=== PATIENT | female | born 1955 | race Caucasian/White ===

== ENCOUNTER 2018-11-25 06:05 | Inpatient (IN) | payer OTHER ==
[2018-11-19 12:39] VITALS: BMI 19.2
[2018-11-25] MEDS ORDERED: CEFAZOLIN 1 GM/D5W 1 GM/50 ML BAG IVPB ONE ×2 (06:28→15:00)
[2018-11-25] MEDS ORDERED: oxyCODONE HCL 10 MG SUSTAINED ACTING TABLET PO STA (06:28)
[2018-11-25] MEDS ORDERED: oxyCODONE HCL 10 MG SUSTAINED ACTING TABLET ONE (06:51)
--- NOTE | 2018-11-25 07:03 | HP ---
History & Physical Update - History History: No Change - Physical Physical: No Change - Assessment Assessment: No Change - Plan Plan: No Change (Initial H&P is complete and accurate. no new complaints or medications. Here today for elective L1/2 TLIF (LBP radiating to right hip).)
[2018-11-25] MEDS ORDERED: THROMBIN (BOVINE) 5,000 UNIT VIAL TP ONE ×2 (07:05→08:39)
[2018-11-25] MEDS ORDERED: BUPIVACAINE HCL/PF 2.5 MG/ML - 30 ML VIAL IJ ONE (07:12)
[2018-11-25] MEDS ORDERED: MIDAZOLAM HCL 2 MG/2 ML SINGLE DOSE VIAL ONE (07:12)
[2018-11-25] MEDS ORDERED: BUPIVACAINE LIPOSOME/PF (EXPAREL) 266 MG/20 ML VIAL ONE (07:12)
[2018-11-25] MEDS ORDERED: ceFAZolin SODIUM 1 GM VIAL ONE (08:12)
[2018-11-25] MEDS ORDERED: ONDANSETRON 4 MG/2 ML VIAL ONE ×2 (08:12→10:47)
[2018-11-25] MEDS ORDERED: DEXAMETHASONE SOD PHOSPHATE 4 MG/1 ML VIAL ONE (08:12)
[2018-11-25] MEDS ORDERED: SUCCINYLCHOLINE CHLORIDE 200 MG/10 ML VIAL ONE (08:35)
[2018-11-25] MEDS ORDERED: GELATIN SPONGE,ABSORBABLE 1 GM PACKET TP ONE (08:40)
--- NOTE | 2018-11-25 10:03 | OP ---
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
[2018-11-25] MEDS ORDERED: oxyCODONE HCL 5 MG TABLET PO PRN ×3 (10:04→10:07)
--- NOTE | 2018-11-25 10:04 | SURG ---
Surgery Finish Rolls Operator Note Finish Rolls Operator: Daniel Rausch PA-C Date of Service: 11/25/18 Diagnosis: L1/2 spondylolithesis, scoliosis, radiulopathy Procedure: Transforaminal lumbar interbody fusion L1/2, decompression / instrumentation / allograft implant / neuromonitoring I was present for the entirety of the operative procedure. For further detail, please refer to operative report. Visit type - Case Type Case Type: Scheduled - New patient This patient is new to me today: Yes Date on this admission: 11/25/18
[2018-11-25] MEDS ORDERED: LACTATED RINGERS SOLUTION 1,000 ML IV SCH ×2 (10:15)
[2018-11-25] MEDS: ONDANSETRON 4 MG/2 ML VIAL IVPUSH PRN ×2 (10:47→16:15)
[2018-11-25] MEDS: ACETAMINOPHEN 1000 MG/100 ML VIAL (NON FORMULARY) IVPB PRN ×2 (11:45→20:37)
--- NOTE | 2018-11-25 14:16 | OP ---
DATE OF OPERATION: 11/25/2018 PREOPERATIVE DIAGNOSIS: Spinal stenosis, L1-L2. POSTOPERATIVE DIAGNOSIS: Spinal stenosis, L1-L2. PROCEDURE PERFORMED: 1. Transforaminal lumbar interbody fusion, L1-L2. 2. Placement of instrumentation. 3. Placement of cage. SURGEON: Lui Barriga MD BIT WELDER: TUNDE Duran ESTIMATED BLOOD LOSS: 50 mL. IINTRAVENOUS FLUID: Per Anesthesia. ANESTHESIA: Spinal/TLIP. COMPLICATIONS: There were none. DISPOSITION: Patient brought to the PACU in stable condition. INDICATIONS: The patient is a 63-year-old female who has been suffering from pain from her back down her right leg. X-rays and MRI were completed, which noted that she had spinal stenosis at L1-L2 secondary to degenerative disc disease. She had gone through an exhaustive course of treatment which included medications, physical therapy, as well as injections. Unfortunately, her pain continued to persist despite all this. At this point, risks, benefits, and alternatives were discussed, and the patient consented to surgery. OPERATIVE NOTE: Patient was brought to the operating room by the anesthesia staff. After appropriate patient identification was performed, spinal anesthesia was given, TLIP block was also given. Patient was able to position herself prone onto the OR table with all areas of bony prominences well-padded at this time. The C-arm was brought in. The L1-L2 pedicles were marked off. Her back was prepped and draped in a sterile manner. At this point, a time-out was completed. Incisions were made bilaterally over the L1-L2 pedicles. Dissection was carried down to the fascia. Fascia was splint open at this time. Under C-arm guidance, trocars were then advanced into both the L1 and L2 pedicles, the trocar wires inserted, and over the wires, tap was performed. On the right-hand side, retractor blades were set up to expose the L1-L2 facet joint. A microscope was brought in. The facet joint was removed. The disc was entered. Using a series of pituitary, Kerrison rongeurs, and curettes, the discectomy was completed. The endplates were decorticated at this time. Bone graft was laid in. A cage filled with bone graft was placed in. Tulip heads were placed over the screws. A saleem was measured and placed in. Caps and compression were applied. On the left hand side, a saleem was measured and placed in. Cap and compression were applied. AP and lateral x-rays confirmed the instrumentation to be in good position. The fascia was closed with a No. 1 Vicryl suture. The subcutaneous tissues were closed with 3-0 Vicryl suture. Skin was closed with 3-0 Monocryl suture. Dermabond was applied. Steri-Strips were applied. Sterile dressings applied. Patient was placed supine on the OR bed and brought to the PACU in stable condition. Anupam BELL/[id number] MTDD
[2018-11-25] MEDS ORDERED: CEFAZOLIN 1 GM/D5W 1 GM/50 ML BAG ONE (15:07)
[2018-11-25] MEDS ORDERED: ceFAZolin SODIUM 1 GM VIAL IVPB ONE (15:15)
[2018-11-25] MEDS ORDERED: PANTOPRAZOLE SODIUM 40 MG VIAL IVPUSH ONE (17:16)
[2018-11-25] MEDS ORDERED: PANTOPRAZOLE SODIUM 40 MG VIAL IVPUSH SCH ×4 (17:45→22:00)
--- NOTE | 2018-11-25 18:15 | PN ---
Physical Exam: Spoke with Dr. Barriga who requests patient be taken onto the hospitalist service. SUBJECTIVE: Patient seen and examined in ASU at bedside. Underwent spinal fusion surgery earlier today, received oxycodone, fentanyl, and IV Tylenol. Complains of a sharp, burning-type pain in the epigastric area with nausea x 1.5 hours. Had a similar episode of epigastric pain on 11/14/18 after taking several doses of ultram for back pain. She was seen at that time in [facility] and diagnosis was gastritis secondary to ultram use. Patient denies any other history of ulcers, GERD, or GI issues. OBJECTIVE: Vital Signs Period Temp Pulse Resp BP Sys/Holm Pulse Ox Last 24 Hr 97.8 F-99.2 F 70-96 11-18 86-150/50-99 95-100 GENERAL: The patient is awake, alert, and fully oriented. Anxious. LUNGS: Breath sounds CTA. HEART: Regular rate and rhythm, S1, S2 ABDOMEN: Soft, nontender, nondistended, hypoactive bowel sounds EXTREMITIES: 2+ pulses, warm, well-perfused, trace bilateral edema NEUROLOGICAL: Cranial nerves II through XII grossly intact. Normal speech, gait not observed. Moving all extremities freely; self-positions easily BACK: Surgical dressing c/d/i, no surrounding erythema, swelling, or fluctuance ; no strikethrough SKIN: Warm, dry, normal turgor Active Medications Generic Name Dose Route Start Last Admin Trade Name Freq PRN Reason Stop Dose Admin Acetaminophen 650 mg 11/25/18 10:15 Tylenol - PO Q6H ANNE MARIE Acetaminophen 1,000 mg 11/25/18 10:04 11/25/18 11:45 Ofirmev Injection - IVPB 11/26/18 10:03 1,000 mg PRN PRN Administration If narcotics are ineffective Diazepam 2 mg 11/25/18 22:00 Valium - PO Q12H ANNE MARIE Lactated Ringer's 1,000 mls @ 125 mls/hr 11/25/18 10:15 Lactated Ringers Solution IV ASDIR ANNE MARIE Oxycodone HCl 5 mg 11/25/18 10:07 Roxicodone - PO Q4H PRN PAIN LEVEL 1-5 Oxycodone HCl 5 mg 11/25/18 10:04 Roxicodone - PO Q4H PRN PAIN LEVEL 1-5 Oxycodone HCl 10 mg 11/25/18 10:04 Roxicodone - PO Q4H PRN PAIN LEVEL 6-10 Pantoprazole Sodium 40 mg 11/25/18 22:00 Protonix Iv IVPUSH BID PENDING SALE TO [facility] ASSESSMENT/PLAN 63 year-old female s/p L1-L2 TLIF and allograft implant earlier today. Now with epigastric pain and nausea. Epigastric pain and nausea --vital signs are stable, surgical dressing is c/d/i, no signs of bleeding --discomfort is likely secondary to opioid medication as patient had similar episode 2 weeks ago; will start protonix IV BID --cbc, EKG, serial troponins --IV fluids --NPO for now; clears in am --continue IV tylenol and valium; monitor pain levels closely; if pain not well-managed contact hospitalist night team Visit type - Emergency Visit Emergency Visit: No - New Patient This patient is new to me today: Yes Date on this admission: 11/25/18 - Critical Care Critical Care patient: No
[2018-11-25] MEDS ORDERED: DEXTROSE 5%-0.45% SALINE 1,000 ML IV SCH (18:30)
[2018-11-25] MEDS ORDERED: diazePAM 5 MG TABLET PO STA (18:32)
[2018-11-25] MEDS ORDERED: diazePAM 5 MG TABLET ONE (18:46)
[2018-11-25 19:14] LABS: HEMOGLOBIN 10.7 GM/dl (10.7-15.3); MCHC 33.3 g/dl (32.0-36.0); MEAN CELL VOLUME 96.3 fl (80-96); MEAN PLT VOLUME 7.5 fl (7.5-11.1); PLATELET COUNT 200 K/MM3 (134-434); RBC 3.33 M/mm3 (3.60-5.2); RDW 11.7 % (11.6-15.6); WHITE BLOOD COUNT 11.1 K/mm3 (4.0-10.8)
[2018-11-25 19:25] LABS: ALBUMIN 3.7 g/dl (3.4-5.0); ALK PHOS 39 U/L (45-117); ANION GAP 7 MMOL/L (8-16); BILIRUBIN,TOTAL 0.5 mg/dl (0.2-1); BLOOD UREA NITROGEN 13 mg/dl (7-18); CHLORIDE 100 mmol/L (98-107); CO2 27 mmol/L (21-32); CREATININE 0.7 mg/dl (0.55-1.3); GLUCOSE,RANDOM 224 mg/dl (74-106); MAGNESIUM 1.5 mg/dL (1.8-2.4); POTASSIUM 3.9 mmol/L (3.5-5.1); SGOT/AST 27 U/L (15-37); SGPT/ALT 16 U/L (13-61); SODIUM 134 mmol/L (136-145); TOT PROT 6.1 g/dl (6.4-8.2)
[2018-11-25] MEDS ORDERED: MAGNESIUM SULF 50% (8.12 MEQ/2 ML-1 GM VIAL) IVPB ONE (21:22)
[2018-11-25] MEDS ORDERED: ONDANSETRON 4 MG/2 ML VIAL IVPUSH PRN (21:36)
[2018-11-25] MEDS ORDERED: PROMETHAZINE HCL 50 MG/1 ML AMP IM ONE (21:36)
[2018-11-25] MEDS ORDERED: PROMETHAZINE HCL 25 MG/1 ML VIAL ONE (21:49)
[2018-11-25] MEDS ORDERED: diazePAM 2 MG TABLET PO SCH (22:00)
[2018-11-25 22:33] LABS: ANISOCYTOSIS 1+; PLATELET ESTIMATE ADEQUATE
[2018-11-26] MEDS: ACETAMINOPHEN 325 MG TABLET (FP) PO SCH ×3 (00:03→09:30)
[2018-11-26] MEDS ORDERED: METOCLOPRAMIDE HCL INJECTION 10 MG/2 ML VIAL IVPUSH ONE (01:03)
[2018-11-26] MEDS: ACETAMINOPHEN 1000 MG/100 ML VIAL (NON FORMULARY) IVPB PRN (03:01)
[2018-11-26] MEDS ORDERED: HYDROmorphone HCl 2 MG/ML VIAL IVPB PRN (04:04)
[2018-11-26] MEDS ORDERED: KETOROLAC TROMETHAMINE 30 MG/1 ML VIAL IVPB SCH (04:15)
--- NOTE | 2018-11-26 07:22 | DS ---
Physical Exam: SUBJECTIVE: Patient seen and examined. Per RN notes and oral report this morning , patient had a difficult time managing her pain and abd pain associated with nausea. According to Dr. Barriga, patient had similar episode to Tramadol a week ago which landed her in the hospital --> diagnosed with Gastritis secondary to Tramadol sensitivity. Patient has taken Percocet in the past without any problems. Last night, patient c/o epigastric pain/burning/gnawing sensation (10/10) that was difficult to control associated with nausea. All narcotics were stopped. [facility] on-call PA called who ordered Ketorolac and Ofirmev. Per RN patient finally able to fall asleep and no more complaints. Currently, patient laying LLR without complaint. States her nausea subsided. Abd pain now 12/19. She got oob and ambulated to commode. Voiding spontaneously. Prior too surgery, patient c/o low back pain that radiated to her right hip. Now s/p surgery states pain in her right hip is completely gone. OBJECTIVE: Last Vital Signs Temp Pulse Resp BP Pulse Ox 98.8 F 101 H 19 131/77 98 11/26/18 06:00 11/26/18 06:00 11/26/18 06:00 11/26/18 06:00 11/26/18 06:00 PE GENERAL: awake, alert, and fully oriented, in no acute distress. HEAD: Normal with no signs of trauma. EYES: PERRL, extraocular movements intact, sclera anicteric, conjunctiva clear. ENT: Ears normal, nares patent, oropharynx clear without exudates, moist mucous membranes. NECK: Trachea midline, full range of motion, supple. LUNGS: CTA bilat HEART: RRR ABDOMEN: Soft, nontender, nondistended, normoactive bowel sounds, no guarding, no rebound, no hepatosplenomegaly, no masses. LE: 2+ pulses, warm, well-perfused, no edema. NEUROLOGICAL: CN II - XII grossly intact. Normal speech, gait not observed. PSYCH: Normal mood, normal affect. SKIN: Lumbar dressing c/d/i. No palpable hematoma. No drainage. No surrounding erythema LABS CBC,CMP WBC 11.1 K/mm3 (4.0-10.8) H 11/25/18 19:00 RBC 3.33 M/mm3 (3.60-5.2) L 11/25/18 19:00 Hgb 10.7 GM/dl (10.7-15.3) 11/25/18 19:00 Hct 32.0 % (32.4-45.2) L 11/25/18 19:00 MCV 96.3 fl (80-96) H 11/25/18 19:00 MCH 32.0 pg (25.7-33.7) 11/25/18: MCHC 33.3 g/dl (32.0-36.0) 11/25/18 19: RDW 11.7 % (11.6-15.6) 11/25/18: Plt Count 200 K/MM3 (134-434) 11/25/18: MPV 7.5 fl (7.5-11.1) 11/25/18 19:00 Absolute Neuts (auto) 10.1 K/mm3 11/25/18 19:00 Neutrophils % No Result Required. 11/25/18 19: Neutrophils % (Manual) 86.0 % (42.8-82.8) H 11/25/18 19:00 Band Neutrophils % 2.0 % (0-10) 11/25/18:00 Lymphocytes % No Result Required. 11/25/18 19:00 Lymphocytes % (Manual) 10.0 % (8-40) 11/25/18 19:00 Monocytes % (Manual) 2 % (3.8-10.2) L 11/25/18 19: Platelet Estimate Adequate 11/25/18 19:00 Anisocytosis 1+ 11/25/18: Spherocytes 1+ 11/25/18 19: Sodium 134 mmol/L (136-145) L 11/25/18 19:00 Potassium 3.9 mmol/L (3.5-5.1) 11/25/18:00 Chloride 100 mmol/L (98-107) 11/25/18 19:00 Carbon Dioxide 27 mmol/L (21-32) 11/25/18 19:00 Anion Gap 7 MMOL/L (8-16) L 11/25/18 19:00 BUN 13 mg/dl (7-18) 11/25/18 19:00 Creatinine 0.7 mg/dl (0.55-1.3) 11/25/18 19:00 Creat Clearance w eGFR > 60 (>60) 11/25/18 19:00 Random Glucose 224 mg/dl (74-106) H 11/25/18 19:00 Calcium 9.0 mg/dl (8.5-10) 11/25/18 19:00 Magnesium 1.5 mg/dL (1.8-2.4) L 11/25/18 19:00 Total Bilirubin 0.5 mg/dl (0.2-1) 11/25/18 19:00 AST 27 U/L (15-37) 11/25/18 19:00 ALT 16 U/L (13-61) 11/25/18 19:00 Alkaline Phosphatase 39 U/L (45-117) L 11/25/18 19:00 Troponin I < 0.02 ng/ml (0.00-0.05) 11/26/18 01:04 Total Protein 6.1 g/dl (6.4-8.2) L 11/25/18 19:00 Albumin 3.7 g/dl (3.4-5.0) 11/25/18 19:00 HOSPITAL COURSE: Date of Admission:11/25/18 Date of Discharge: 11/26/18 The patient was admitted to the Med-Surg Unit after an elective repair of their L1/2 spondylolithesis. Now, s/p L1/2 TLIF / allograft implant / neuromonitoring. Post-operative management was a bit challenging with this patient. The typical medications used resulted in a gastritis. All narcotics were stopped. Pain managed with IV Tylenol and Tordol IV x1. Nausea control with antiemetics ( Reglan). POD #1, An xray was obtained and confirmed hardware placement at L1/2, no fractures or dislocations. Reyna-operative IV ABX were administered. DVT prophylaxis was achieved with SCDs and early ambulation. The patient ambulated with Physical Therapy and no services were recommended upon discharge. Muscle relaxants were checked with [place] [facility] prior to escribe. The discharge instructions and an oral pain management plan were reviewed with the patient. All questions answered. Above plan discussed with Dr. aBrriga and agreed. Minutes to complete discharge: 40 <Daniel Rausch P - Last Filed: 11/26/18 10:46> Physical Exam: SUBJECTIVE: Patient seen and examined OBJECTIVE: Vital Signs Temperature 98.8 F 11/26/18 06:00 Pulse Rate 101 H 11/26/18 06:00 Respiratory Rate 19 11/26/18 06:00 Blood Pressure 131/77 11/26/18 06:00 O2 Sat by Pulse Oximetry (%) 98 11/26/18 06:00 PHYSICAL EXAM GENERAL: The patient is awake, alert, and fully oriented, in no acute distress. HEAD: Normal with no signs of trauma. EYES: PERRL, extraocular movements intact, sclera anicteric, conjunctiva clear. ENT: Ears normal, nares patent, oropharynx clear without exudates, moist mucous membranes. NECK: Trachea midline, full range of motion, supple. LUNGS: Breath sounds equal, clear to auscultation bilaterally, no wheezes, no crackles, no accessory muscle use. HEART: Regular rate and rhythm, S1, S2 without murmur, rub or gallop. ABDOMEN: Soft, nontender, nondistended, normoactive bowel sounds, no guarding, no rebound, no hepatosplenomegaly, no masses. EXTREMITIES: 2+ pulses, warm, well-perfused, no edema. NEUROLOGICAL: Cranial nerves II through XII grossly intact. Normal speech, gait not observed. PSYCH: Normal mood, normal affect. SKIN: Warm, dry, normal turgor, no rashes or lesions noted. LABS CBC,CMP WBC 10.8 K/mm3 (4.0-10.8) 11/26/18 07:00 RBC 3.11 M/mm3 (3.60-5.2) L 11/26/18 07:00 Hgb 10.1 GM/dl (10.7-15.3) L 11/26/18 07:00 Hct 30.4 % (32.4-45.2) L 11/26/18 07:00 MCV 97.7 fl (80-96) H 11/26/18 07:00 MCH 32.6 pg (25.7-33.7) 11/26/18 07:00 MCHC 33.3 g/dl (32.0-36.0) 11/26/18 07:00 RDW 11.8 % (11.6-15.6) 11/26/18 07:00 Plt Count 189 K/MM3 (134-434) 11/26/18 07:00 MPV 7.9 fl (7.5-11.1) 11/26/18 07:00 Absolute Neuts (auto) 9.4 K/mm3 11/26/18 07:00 Neutrophils % 87.2 % (42.8-82.8) H 11/26/18 07:00 Neutrophils % (Manual) 86.0 % (42.8-82.8) H 11/25/18 19:00 Band Neutrophils % 2.0 % (0-10) 11/25/18 19:00 Lymphocytes % 7.2 % (8-40) L 11/26/18 07:00 Lymphocytes % (Manual) 10.0 % (8-40) 11/25/18 19:00 Monocytes % 5.4 % (3.8-10.2) 11/26/18 07:00 Monocytes % (Manual) 2 % (3.8-10.2) L 11/25/18 19:00 Eosinophils % 0.0 % (0-4.5) 11/26/18 07:00 Basophils % 0.2 % (0-2.0) 11/26/18 07:00 Platelet Estimate Adequate 11/25/18 19:00 Anisocytosis 1+ 11/25/18 19:00 Spherocytes 1+ 11/25/18 19:00 Sodium 134 mmol/L (136-145) L 11/25/18 19:00 Potassium 3.9 mmol/L (3.5-5.1) 11/25/18 19:00 Chloride 100 mmol/L (98-107) 11/25/18 19:00 Carbon Dioxide 27 mmol/L (21-32) 11/25/18 19:00 Anion Gap 7 MMOL/L (8-16) L 11/25/18 19:00 BUN 13 mg/dl (7-18) 11/25/18 19:00 Creatinine 0.7 mg/dl (0.55-1.3) 11/25/18 19:00 Creat Clearance w eGFR > 60 (>60) 11/25/18 19:00 Random Glucose 224 mg/dl (74-106) H 11/25/18 19:00 Calcium 9.0 mg/dl (8.5-10) 11/25/18 19:00 Magnesium 1.5 mg/dL (1.8-2.4) L 11/25/18 19:00 Total Bilirubin 0.5 mg/dl (0.2-1) 11/25/18 19:00 AST 27 U/L (15-37) 11/25/18 19:00 ALT 16 U/L (13-61) 11/25/18 19:00 Alkaline Phosphatase 39 U/L (45-117) L 11/25/18 19:00 Troponin I < 0.02 ng/ml (0.00-0.05) 11/26/18 01:04 Total Protein 6.1 g/dl (6.4-8.2) L 11/25/18 19:00 Albumin 3.7 g/dl (3.4-5.0) 11/25/18 19:00 HOSPITAL COURSE: Date of Admission:11/25/18 Date of Discharge: 11/26/18 Patient seen and examined Events from last night noted D/C Planning <Lui Barriga - Last Filed: 11/26/18 14:01>
[2018-11-26 08:03] LABS: BASO % 0.2 % (0-2.0); HEMATOCRIT 30.4 % (32.4-45.2); HEMOGLOBIN 10.1 GM/dl (10.7-15.3); LYMPH % 7.2 % (8-40); MCH 32.6 pg (25.7-33.7); MCHC 33.3 g/dl (32.0-36.0); MEAN CELL VOLUME 97.7 fl (80-96); MEAN PLT VOLUME 7.9 fl (7.5-11.1); MONO % 5.4 % (3.8-10.2); NEUT % 87.2 % (42.8-82.8); PLATELET COUNT 189 K/MM3 (134-434); RBC 3.11 M/mm3 (3.60-5.2); RDW 11.8 % (11.6-15.6); WHITE BLOOD COUNT 10.8 K/mm3 (4.0-10.8)
[2018-11-26] MEDS ORDERED: diazePAM 2 MG TABLET PO SCH (10:00)
--- NOTE | 2018-11-26 12:44 | EKG ---
Test Reason : Blood Pressure : / mmHG Vent. Rate : 097 BPM Atrial Rate : 097 BPM P-R Int : 178 ms QRS Dur : 086 ms QT Int : 344 ms P-R-T Axes : 049 055 019 degrees QTc Int : 436 ms NORMAL SINUS RHYTHM POSSIBLE LEFT ATRIAL ENLARGEMENT ANTERIOR INFARCT , AGE UNDETERMINED ABNORMAL ECG NO PREVIOUS ECGS AVAILABLE Confirmed by DARREN BRAMBILA MD ([id number]) on 11/26/2018 12:43:44 PM Referred By: Lui Barriga Confirmed By:DARREN BRAMBILA MD
--- NOTE | 2018-11-26 13:29 | PN ---
Progress Note, Physician Chief Complaint: s/p lumbar laminectomy/ fusion under spinal anesthesia post op day one History of Present Illness: Bilateral TLIP blocks for post op pain control - Current Medication List Current Medications: Active Medications Acetaminophen (Tylenol -) 650 mg PO Q6H [facility] Last Admin: 11/26/18 09:30 Dose: 650 mg Diazepam (Valium -) 2 mg PO Q12H ANNE MARIE Hydromorphone HCl (Dilaudid Vial -) 1 mg IVPB Q4H PRN PRN Reason: PAIN LEVEL 6-10 Lactated Ringer's (Lactated Ringers Solution) 1,000 mls @ 125 mls/hr IV ASDIR ANNE MARIE Dextrose/Sodium Chloride (D5-1/2ns -) 1,000 mls @ 75 mls/hr IV ASDIR ANNE MARIE Last Admin: 11/25/18 21:18 Dose: 75 mls/hr Ketorolac Tromethamine (Toradol Injection -) 30 mg IVPB ONCE ANNE MARIE Stop: 12/01/18 04:14 Last Admin: 11/26/18 04:12 Dose: 30 mg Ondansetron HCl (Zofran Injection) 4 mg IVPUSH Q6H PRN PRN Reason: NAUSEA Last Admin: 11/26/18 00:06 Dose: 4 mg Pantoprazole Sodium (Protonix Iv) 40 mg IVPUSH BID ANNE MARIE Last Admin: 11/25/18 21:18 Dose: 40 mg - Objective Vital Signs: Vital Signs Temperature 98.8 F 11/26/18 06:00 Pulse Rate 101 H 11/26/18 06:00 Respiratory Rate 19 11/26/18 06:00 Blood Pressure 131/77 11/26/18 06:00 O2 Sat by Pulse Oximetry (%) 98 11/26/18 06:00 Constitutional: Yes: Well Nourished Cardiovascular: Yes: WNL Respiratory: Yes: WNL Gastrointestinal: Yes: WNL Labs: CBC, BMP 11/26/18 07:00 11/25/18 19:00 Assessment/Plan Patient had intractable nausea and vomiting overnight which was finally relieved by reglan, pain controlled by toradol and ofirmev. patient to be discharged this afternoon, no other complications from anesthetic. dept of anesthesia will sign off care at this time
[2018-11-26 14:16] VITALS: BP 123/78; PULSE 95; TEMP 99.2
== END 2018-11-26 14:56 | disposition home or self-care (01) | DRG 460 ==
LOC: FM/S 06:05
PROVIDERS: ADMIT Orthopaedic Surgery Orthopaedic Surgery of the Spine; ATTEND Nurse Practitioner Acute Care
PROC: 4A1004G Monitoring of Central Nervous Electrical Activity, Intraoperative, Open Approach (ICD-10-PCS; 2018-11-25)
PROC: 0SG00AJ Fusion of Lumbar Vertebral Joint with Interbody Fusion Device, Posterior Approach, Anterior Column, Open Approach (ICD-10-PCS; principal; 2018-11-25 07:30)
DX: M48.061 Spinal stenosis, lumbar region without neurogenic claudication (principal); M43.16 Spondylolisthesis, lumbar region; I10 Essential (primary) hypertension; E78.5 Hyperlipidemia, unspecified; R10.13 Epigastric pain; R11.0 Nausea; M41.9 Scoliosis, unspecified; M54.16 Radiculopathy, lumbar region
CPT/HCPCS: 36415; 71045-TC-FY; 72100-TC-FY; 76000-TC-FY; 80053; 83735; 84484; 85025; 93005; 94760; 97116-GP; 97162-GP; J0131